=== PATIENT | male | born 1945 | race Caucasian/White ===

== ENCOUNTER → 2021-10-02 | Outpatient (CLI) | payer OTHER | END | disposition home or self-care (01) | LOC: COVID19 16:34 | PROVIDERS: ATTEND Internal Medicine | DX: Z11.52 Encounter for screening for COVID-19 (principal) ==

== ENCOUNTER 2024-03-07 08:35 | Emergency (ER) | payer MEDICARE, OTHER ==
[~2024-03-07] VITALS: Ht 182.8 cm; Wt 86.2 kg
[2024-03-07] MEDS ORDERED: PRAZOSIN HCL5 MG PO (09:01)
[2024-03-07] MEDS ORDERED: PAROXETINE40 MG PO (09:02)
[2024-03-07] MEDS ORDERED: OMEPRAZOLE MAGN20 MG PO (09:02)
[2024-03-07] MEDS ORDERED: METFORMIN HCL500 M2 PO (09:03)
[2024-03-07] MEDS ORDERED: LISINOPRIL10 M1 PO (09:03)
[2024-03-07] MEDS ORDERED: BASAG SOL SC (09:06)
[2024-03-07] MEDS ORDERED: OZEMPIC1 MG/0.71 SQ (09:08)
[2024-03-07] MEDS ORDERED: diphenhydrAMINE hydrochloride 50 MG/ML VIAL IV ONE (09:15)
[2024-03-07] MEDS ORDERED: SODIUM CHLORIDE 0.9% 1,000 ML IV ONE (09:15)
[2024-03-07] MEDS ORDERED: Ketorolac Tromethamine 15 MG/ML VIAL IV ONE (09:15)
[2024-03-07] MEDS ORDERED: Metoclopramide Hydrochloride 10 MG/2 ML AMP IV ONE (09:15)
[2024-03-07] MEDS ORDERED: ACETAMINOPHEN 325 MG TAB PO ONE (09:15)
[2024-03-07 09:36] LABS: BASO % 0.3 % (0.0-1.0); EOS # 0.1 10*3/uL (0.0-0.4); EOS % 0.7 % (1.0-4.0); HEMATOCRIT 41.4 % (42.0-52.0); LYMPH # 1.2 10*3/uL (1.3-4.4); LYMPH % 9.3 % (27.0-41.0); MEAN CELL VOLUME 84.8 fl (80.0-94.0); MEAN CORPUSCULAR HGB 27.7 pg (27.0-31.0); MEAN CORPUSCULAR HGB CONC 32.6 g/dl (33.0-37.0); MEAN PLATELET VOLUME 10.5 fl (9.6-12.3); MONO # 1.2 10*3/uL (0.1-1.0); MONO % 8.9 % (3.0-9.0); NEUT # 10.5 10*3/uL (2.3-7.9); NEUT % 80.5 % (47.0-73.0); PLATELET COUNT AUTOMATED 287 10*3/uL (130-400); RED BLOOD COUNT 4.88 10*6/uL (4.50-5.90); RED CELL DISTRI WIDTH 14.7 % (0-14.5)
[2024-03-07 09:57] LABS: ALKALINE PHOSPHATASE 69 U/L (46-116); BUN 14 mg/dl (9-23); CHLORIDE 102 mmol/L (98-107); POTASSIUM 3.7 mmol/L (3.4-5.1); TOTAL PROTEIN 7.4 gm/dL (6.0-8.0)
[2024-03-07 10:09] LABS: SGPT/ALT < 7 U/L (5-49)
[2024-03-07] MEDS ORDERED: HYDROmorphONE Hydrochloride 0.5 MG/0.5 ML SYRINGE IV ONE (10:25)
[2024-03-07] MEDS ORDERED: Ondansetron Hydrochloride 4 MG/2 ML VIAL IV ONE (10:25)
== END 2024-03-07 10:37 | disposition home or self-care (01) ==
LOC: ED 08:35
PROVIDERS: Emergency Medicine
DX: R51.9 Headache, unspecified (principal); Z79.899 Other long term (current) drug therapy; Z79.4 Long term (current) use of insulin